=== PATIENT | female | born 1970 | race Caucasian/White ===

== ENCOUNTER 2022-01-11 13:54 | Day surgery (SDC) | payer OTHER ==
[2022-01-11] VITALS (8 sets, daily range): BP systolic 105–137; BP diastolic 44–80; PULSE 69–87; TEMP 97.9–98.2
[2022-01-11] MEDS ORDERED: MICARDIS20 MG PO (15:07)
[2022-01-11] MEDS ORDERED: SYNTHROID 0.0.025 MG PO (15:08)
[2022-01-11] MEDS ORDERED: SINGULAIR 110 MG/TAB PO (15:08)
[2022-01-11] MEDS ORDERED: IMITREX50 MG PO (15:09)
[2022-01-11] MEDS ORDERED: EPIPEN 2-PAK1 MG/ML IM (15:10)
[2022-01-11] MEDS ORDERED: PROAIR HFA0.09 MG/AC IH (15:11)
[2022-01-11] MEDS ORDERED: ROXICODONE 55 MG/TAB PO (15:12)
[2022-01-11] MEDS ORDERED: PYRIDIUM 100MG100 MG PO (17:20)
[2022-01-11] MEDS ORDERED: NORCO 325 MG-51 TAB PO (17:20)
--- NOTE | 2022-01-11 18:00 | NUR ---
Arrived to room 349 via stretcher from PACU. Post op vitals initiated. Oriented to room/policy. VS currently stable. 20g IV to left hand with post op fluids infusing without difficulty. Plan of care discussed for this shift to include meeting discharge criteria. Instructed to call to get up to bathroom for first time. Verbalizes understanding. Call light in reach. Will monitor.
--- NOTE | 2022-01-11 18:37 | NUR ---
Up to bathroom at this time-voided without difficulty. Provided with jello and crackers. VS remain stable. Denies questions/concerns. Call light in reach. Will monitor.
--- NOTE | 2022-01-11 19:55 | NUR ---
PT READY FOR DISCHARGE. DC'D IV SITE FROM LEFT HAND, ANGIOCATH INTACT. REVIEWED DISCHARGE INSTRUCTIONS WITH PT AND SPOUSE. HAS PAIN MEDS AT HOME, DENIES PAIN AT THIS TIME.
--- NOTE | 2022-01-11 20:15 | NUR ---
PT DISCHARGED TO PRIVATE CAR VIA AMBULATORY STATUS. PERSONAL BELONGINGS AND DISCHARGE INSTRUCTIONS SENT WITH PT.
== END 2022-01-11 20:15 | disposition home or self-care (01) ==
LOC: SDCO 13:54 → SURG 19:15 → SDCO 20:15
DX: N20.1 Calculus of ureter (principal)
CPT/HCPCS: C1769; J0690; J1100; J2405; J2704; J3010; J7120

== ENCOUNTER → 2022-01-30 | Outpatient (CLI) | payer OTHER ==
[~2022-01-30] MED LIST: EPIPEN 2-PAK1 MG/ML IM; IMITREX50 MG PO; MICARDIS20 MG PO; NORCO 325 MG-51 TAB PO; PROAIR HFA0.09 MG/AC IH; PYRIDIUM 100MG100 MG PO; ROXICODONE 55 MG/TAB PO; SINGULAIR 110 MG/TAB PO; SYNTHROID 0.0.025 MG PO
== END ==
LOC: COL.PUL 09:44
DX: R06.02 Shortness of breath (principal)
CPT/HCPCS: J7674

== ENCOUNTER 2023-09-09 14:32 | Inpatient (IN) | payer OTHER ==
[~2023-09-09] VITALS: Ht 177.8 cm; Wt 68.3 kg
[~2023-09-09 14:32] MED LIST changes: +AMOXICILLIN 8751 TAB PO; +CEFTIN500 MG PO; +FLAGYL500 MG PO; +LEVAQUIN 750MG750 M1 PO; +MAXALT MLT10 MG/TAB PO; +PRILOTC PO; +PROBIOTIC DIGE1 EACH PO; +REGLAN 5MG T5 MG/TAB PO; +TURMERIC500 MG PO; +VANCOCIN H125 MG/CAP PO; +ZOFRAN 4MG T4 MG/TAB PO; +ZOFRAN ODT4 MG PO
[2023-10-21] VITALS (11 sets, daily range): BP systolic 115–134; BP diastolic 69–90; PULSE 71–83; TEMP 98
[2023-10-21] MEDS ORDERED: Gabapentin 100 MG CAP PO SCH (10:00)
[2023-10-21] MEDS ORDERED: Acetaminophen 500 MG TAB PO SCH ×2 (10:00→18:30)
[2023-10-21] MEDS ORDERED: metroNIDAZOLE 500 MG/100 ML IVPB IV SCH (11:00)
[2023-10-21] MEDS ORDERED: LR 1,000 ML IV SCH ×2 (11:30→16:30)
[2023-10-21] MEDS ORDERED: Midazolam 2 MG/2 ML VIAL ONE (11:58)
[2023-10-21] MEDS ORDERED: fentaNYL 50 MCG/ML 2 ML VIAL ONE ×2 (11:58→16:04)
[2023-10-21] MEDS ORDERED: Lidocaine PF 2% (20 MG/ML) 5 ML VIAL ONE (11:59)
[2023-10-21] MEDS ORDERED: Rocuronium 50 MG/5 ML Multi-Dose VIAL ONE (11:59)
[2023-10-21] MEDS ORDERED: NS 10 ML IV ONE (12:03)
[2023-10-21] MEDS ORDERED: dexAMETHasone 10 MG/ML VIAL ONE (12:04)
[2023-10-21] MEDS ORDERED: Topical Skin Adhesive 1 EACH (1 ML) TOP ONE (12:42)
[2023-10-21] MEDS ORDERED: Ondansetron 4 MG/2 ML VIAL ONE (13:30)
[2023-10-21] MEDS ORDERED: HYDROmorphone 2 MG/1 ML VIAL IV PRN (14:15)
[2023-10-21] MEDS ORDERED: Ondansetron 4 MG/2 ML VIAL IV PRN ×2 (14:15→16:30)
[2023-10-21] MEDS ORDERED: fentaNYL 50 MCG/ML 2 ML VIAL IV PRN (14:15)
[2023-10-21] MEDS ORDERED: droPERidol 2.5 MG/ML 2 ML VIAL IV PRN (14:15)
[2023-10-21] MEDS ORDERED: Meperidine 50 MG/ML 1 ML VIAL IV PRN (14:15)
[2023-10-21] MEDS ORDERED: Morphine 4 MG/ML VIAL IV PRN (14:15)
[2023-10-21] MEDS ORDERED: Indocyanine Green 25 MG KIT IV ONE (14:55)
[2023-10-21] MEDS ORDERED: Naloxone 0.4 MG/ML VIAL IV PRN (16:30)
[2023-10-21] MEDS ORDERED: Ibuprofen 600 MG TAB PO PRN (16:30)
[2023-10-21] MEDS ORDERED: oxyCODONE 5 MG TAB PO PRN (16:30)
[2023-10-21] MEDS ORDERED: Albuterol 0.021% Neb Soln 0.63 MG/3 ML UD IH PRN (16:30)
--- NOTE | 2023-10-21 18:18 | NUR ---
PATIENT BROUGHT TO FLOOR AT APPROXIMATELY 1800. POST OP VITALS RUNNING. POST OP FLUIDS INFUSING. LAP SITES X5 CDI WITH SKIN GLUE. ONE SITE FROM OLD COLOSTOMY SITE WITH GAUZE/METAPOR TAPE WITH SLIGHT SHADOWING. PATIENT DROWSY, APPEARS TO BE COMFORTABLE. IN ROOM, ABLE TO HELP ANSWER QUESTIONS. CALL LIGHT IN REACH.
--- NOTE | 2023-10-21 20:30 | NUR ---
PT UP TO BATHROOM, VOIDS AND PASSES GAS. BACK TO BED, REPORTS PAIN AND NAUSEA. MEDICATED WITH OXYCODONE PO AND ZOFRAN IV NOW. HAS IVF TO RT HAND INFUSING WITHOUT PROBLEM. HAS ABD ROBOTIC SITES X5 GLUED/DRY AND GAUZE DRSG TO OLD OSTOMY SITE. CLEAR DIET, AAT.
[2023-10-22] VITALS (12 sets, daily range): BP systolic 111–138; BP diastolic 63–87; PULSE 66–97; TEMP 98.3–99
--- NOTE | 2023-10-22 00:39 | NUR ---
PT REPORTS NAUSEA, THEN BELCHED AND FEELS BETTER. REPORTS ABD PAIN, SCHEDULED ES TYLENOL GIVEN AND PRN OXYCODONE 5MG PO NOW. UP TO VOID AND BACK TO BED. IVF CONTINUE.
--- NOTE | 2023-10-22 04:18 | NUR ---
PT VOIDING WITHOUT PROBLEM. INCREASED DIET TO GENERAL, TAKES ICE CREAM NOW.
--- NOTE | 2023-10-22 04:58 | NUR ---
PT ASKING FOR PAIN MEDS, OXYCODONE 5MG PO GIVEN FOR 8/10 PAIN TO ABD. TAKING ORAL FLUIDS WELL. ZOFRAN GIVEN IV FOR MILD NAUSEA.
--- NOTE | 2023-10-22 06:35 | NUR ---
awake resting in bed, bedside shift report received from STEFAN Cole
[2023-10-22 06:46] LABS: HEMOGLOBIN 11.6 g/dl (12.5-16.0)
[2023-10-22 06:49] LABS: HEMATOCRIT 33.1 % (37.0-47.0)
[2023-10-22 06:54] LABS: CALCIUM 9.3 mg/dL (8.4-10.2); CREATININE, serum 0.87 mg/dL (0.57-1.11); MAGNESIUM 1.7 mg/dL (1.6-2.6); PHOSPHOROUS 2.5 mg/dL (2.3-4.7); POTASSIUM 4.2 mmol/L (3.5-4.5)
--- NOTE | 2023-10-22 07:45 | NUR ---
resting in bed, has ordered breakfast, full assessment completed, see interventions for further info
[2023-10-22] MEDS ORDERED: Montelukast 10 MG TAB PO SCH (09:00)
--- NOTE | 2023-10-22 09:10 | NUR ---
c/o pain 02/17 and medicated with roxicodone 5mg po, Dr Rehman was in and saw patient, patient is independent in room to bathroom
--- NOTE | 2023-10-22 10:10 | NUR ---
in bed and appears to be sleeping, eyes closed, resp quiet and easy
--- NOTE | 2023-10-22 10:51 | NUR ---
Initial visit; Patient and her Perico thanked her for offering God's blessings for the improvement in her health. Patient receptive to prayer of "thanksgiving" and blessings for the health care team who have taken care of her. Service Electrician offered God's blessings.
--- NOTE | 2023-10-22 11:55 | NUR ---
aircraft worker met with patient to discuss discharge planning. Patient lives in [place] with her Harsha, P# [phone]. PCP is [facility], pharmacy is [facility]. No issues affording medications. Insurance is [employer]. Patient reports she does not have a DPOA-HC but may be interested in completing one. SW will follow up on this. No DME and reports to be independent with ADLS. Patient or her is able to drive her to and from appointments. Patient would like to return home at time of discharge. DIscharge plan: Home
--- NOTE | 2023-10-22 13:30 | NUR ---
resting in bed, at bedside, medicated with scheduled tylenol
--- NOTE | 2023-10-22 16:00 | NUR ---
c/o pain 02/17, medicated with roxicodone 5mg po
--- NOTE | 2023-10-22 18:41 | NUR ---
bedside shift report given to STEFAN Cole
--- NOTE | 2023-10-22 18:42 | NUR ---
bedside shift report given to STEFAN Cole
--- NOTE | 2023-10-22 20:52 | NUR ---
PT AWAKE, ALERT AND ORIENTED X4. HAS RT HAND INT. ABD WITH ROBOTIC SITES X5 GLUED/DRY. HAS DRSG TO OLD OSTOMY SITE WITH SHADOWING, UNCHANGED FROM YESTERDAY. INDEPENDENT IN ROOM. OXYCODONE 5MG PO FOR ABD PAIN. PASSING GAS.
[2023-10-23 00:08] VITALS: BP_SYST 129
--- NOTE | 2023-10-23 00:30 | NUR ---
PT MEDICATED WITH SCHEDULED ES TYLENOL AND PRN OXYCODONE 5MG PO NOW.
[2023-10-23 03:26] VITALS: BP 123/75; PULSE 82; TEMP 98.4
[2023-10-23 04:12] VITALS: BP_SYST 123
--- NOTE | 2023-10-23 05:45 | NUR ---
MEDICATED WITH SCHEDULED ES TYLENOL AND PRN OXYCODONE 5MG PO FOR PAIN 02/17 TO ABD. NO BM TONIGHT.
[2023-10-23 07:24] VITALS: BP 119/81; PULSE 76; TEMP 97.9
--- NOTE | 2023-10-23 07:30 | NUR ---
Pt laying in bed. A&O x4. VSS. Normal heart and lung sounds. ABD is soft, rounded with audible bowel sounds. Pt denies n/v, headaches, dizziness. Pt reports 4/10 pain in ABD - LLQ. Pt describes it as aching and intermittent. Aggrivated with movement. Pt refused ice/heat pack. Had medication at 0545. Palpable pulses in all 4 extremities. Pt able to move all exremities. Pt stated she is passing gas but no BM. Pt requested fresh ice water. Administered Synthroid as per EMAR. Fresh ice water brought to bedside.
[2023-10-23 08:30] VITALS: BP_SYST 119
--- NOTE | 2023-10-23 08:45 | NUR ---
Pt laying in bed. Finished breakfast. Administered AM meds as per EMAR. Pt has call light in reach. No concerns at this time.
--- NOTE | 2023-10-23 09:17 | NUR ---
PATIENT ALERT AND ORIENTED X4. VSS. PATIENT HERE FOR COLOSTOMY REVERSAL. LAPS X5 CDI WITH SKIN GLUE. OLD COLOSTOMY SITE WITH GAUZE/TEGADERM SHOWS SOME SHADOWING, BUT NO NEW DRAINAGE. PATIENT TOLERATING FOOD, REPORTS PASSING GAS, NO BM. IV TO RIGHT HAND INT AND FLUSHES WELL. PATIENT REPORTS MILD PAIN THIS MORNING. CALL LIGHT IN REACH.
[2023-10-23] MEDS ORDERED: NORCO 325 MG-51 TAB PO (09:44)
[2023-10-23] MEDS ORDERED: Celecoxib 200 MG CAP PO SCH (10:00)
--- NOTE | 2023-10-23 10:30 | NUR ---
Pt reported 8/10 pain. Administered pain meds as per EMAR. Dressing was starting to peel back. REdressed old colostomy site with gauze and tape. present in room.
--- NOTE | 2023-10-23 11:00 | NUR ---
Received orders for D/C. IV was DC. ABD dressing was changed with gauze and tape. Discussed D/C instructions and Pt instructions with Pt and Pt's . Answered Pt questions. Pt ambulated to Pt entrance with WC.
== END 2023-10-23 10:50 | disposition home or self-care (01) | DRG 334 ==
LOC: SURG 10-15 09:30 → INPTSU 10-21 10:59 → SURG 10-21 10:59
PROVIDERS: ADMIT Surgery
PROC: 8E0W4CZ Robotic Assisted Procedure of Trunk Region, Percutaneous Endoscopic Approach (ICD-10-PCS; 2023-10-21)
PROC: 0DBP4ZZ Excision of Rectum, Percutaneous Endoscopic Approach (ICD-10-PCS; principal; 2023-10-21 13:00)
DX: Z43.3 Encounter for attention to colostomy (principal); I10 Essential (primary) hypertension; G43.909 Migraine, unspecified, not intractable, without status migrainosus; Z88.2 Allergy status to sulfonamides; Z88.8 Allergy status to other drugs, medicaments and biological substances; Z87.442 Personal history of urinary calculi; Z90.710 Acquired absence of both cervix and uterus; Z90.89 Acquired absence of other organs; Z90.49 Acquired absence of other specified parts of digestive tract; Z79.890 Hormone replacement therapy; Z79.899 Other long term (current) drug therapy; Z23 Encounter for immunization
CPT/HCPCS: A4314; A9284; J0690; J1100; J1170; J1650; J1790; J1836; J2250; J2270; J2405; J2704; J2795; J3010; J7120